=== PATIENT | female | born 1970 | race Hispanic/Latino ===

== ENCOUNTER 2017-06-27 13:37 | Outpatient (CLI) | payer OTHER ==
--- NOTE | 2017-06-27 15:04 | MMO ---
BILATERAL SCREENING MAMMOGRAM: Date: 06/27/17 COMPARISON: 09/18/14. HISTORY: Screening mammography. FINDINGS: This patient's mammogram was interpreted with the assistance of computer-aided detection. Scattered fibroglandular densities are present bilaterally with no dominant mass, architectural disto rtion, or concerning microcalcification. IMPRESSION: BIRADS 1: Negative Annual screening mammography recommended. POS: [facility]
== END 2017-06-27 13:38 | disposition home or self-care (01) ==
LOC: SCSMAMMO 13:37
PROVIDERS: ATTEND Family Medicine
DX: Z12.31 Encounter for screening mammogram for malignant neoplasm of breast (principal)
CPT/HCPCS: 77067

== ENCOUNTER 2017-11-16 09:04 | Outpatient (CLI) | payer OTHER ==
--- NOTE | 2017-11-16 10:30 | RAD ---
PA AND LATERAL CHEST: Indication: Left sternal chest pain for three weeks. IMPRESSION: No acute cardiopulmonary abnormality. The examination is not appreciably change from a comparison rai ed 09-08-06. POS: [facility]
== END 2017-11-16 09:05 | disposition home or self-care (01) ==
LOC: SCSRAD 09:04
PROVIDERS: ATTEND Family Medicine
DX: R07.89 Other chest pain (principal)
CPT/HCPCS: 71046

== ENCOUNTER 2018-07-17 11:04 | Outpatient (CLI) | payer OTHER ==
--- NOTE | 2018-07-18 08:24 | MMO ---
Bilateral MAMMO Bilat Screen [facility]. CLINICAL HISTORY: Patient is 48 years old and is seen for screening. The patient has no family history of breast cancer. The patient has no personal history of cancer. VIEWS: The views performed were: bilateral craniocaudal and bilateral mediolateral oblique. FILMS COMPARED: The present examination has been compared to prior imaging studies performed at [facility] on 11/22/2011, 09/18/2014 and 06/27/2017. This study has been interpreted with the assistance of computer-aided detection. MAMMOGRAM FINDINGS: There are scattered fibroglandular densities. There are no suspicious masses, suspicious calcifications, or new areas of architectural distortion. IMPRESSION: THERE IS NO MAMMOGRAPHIC EVIDENCE OF MALIGNANCY. A ROUTINE FOLLOW-UP MAMMOGRAM IN 1 YEAR IS RECOMMENDED. ACR BI-RADS Category 1 - Negative MAMMOGRAPHY NOTE: 1. A negative mammogram report should not delay a biopsy if a dominant of clinically suspicious mass is present. 2. Approximately 10% to 15% of breast cancers are not detected by mammography. 3. Adenosis and dense breasts may obscure an underlying neoplasm.
== END 2018-07-17 11:05 | disposition home or self-care (01) ==
LOC: SCSMAMMO 11:04
PROVIDERS: ATTEND Family Medicine
DX: Z12.31 Encounter for screening mammogram for malignant neoplasm of breast (principal)
CPT/HCPCS: 77067

== ENCOUNTER 2019-05-10 18:27 | Emergency (ER) | payer OTHER, SELFPAY ==
[2019-05-10] MEDS ORDERED: Bupivacaine 0.25% 10 ML VIAL ONE (19:06)
--- NOTE | 2019-05-10 19:33 | RAD ---
EXAM: RIGHT FINGERS THREE VIEWS: 05/10/19 HISTORY: Injury to right fourth finger, smashed finger with door. Deformity. Minimally comminuted oblique displaced fracture involving the middle phalanx of the fourth finger wit h some associated malrotation, abnormal displacement and resultant deformity. The fracture probably i nvolves the proximal interphalangeal joint. IMPRESSION: Comminuted displaced malrotated, malpositioned fracture of the middle phalanx of the fourth finger. POS: [facility]
== END 2019-05-10 19:37 | disposition home or self-care (01) ==
LOC: ERS 18:27
DX: S62.624A Displaced fracture of middle phalanx of right ring finger, initial encounter for closed fracture (principal); F32.9 Major depressive disorder, single episode, unspecified; E78.00 Pure hypercholesterolemia, unspecified; R73.03 Prediabetes; K21.9 Gastro-esophageal reflux disease without esophagitis; W23.1XXA Caught, crushed, jammed, or pinched between stationary objects, initial encounter
CPT/HCPCS: 26770; S0020

== ENCOUNTER 2019-05-12 11:03 | Outpatient (CLI) | payer SELFPAY ==
[2019-05-12 16:23] LABS: #Basophils 0.1 thou/uL (0.0-0.2); #Eosinphils 0.2 thou/uL (0.0-0.7); #Lymphocytes 2.8 thou/uL (1.20-3.40); #Monocytes 1.4 thou/uL (0.11-0.59); #Neutrophils 7.6 thou/uL (1.40-6.50); %Basophils 0.8 % (0.0-1.0); %Eosinophils 1.4 % (0.0-10.0); %Lymphocytes 23.2 % (21.0-51.0); %Monocytes 11.5 % (0.0-10.0); %Neutrophils 63.2 % (42.0-75.0); Hemoglobin 15.1 g/dL (12.0-16.0); Mean Corpuscular HGB CONC 33.4 g/dL (32.0-36.0); Mean Corpuscular Hemoglobin 28.6 pg (27.0-31.0); Mean Corpuscular Volume 85.5 fL (78.0-98.0); Mean Platelet Volume 8.1 fL (7.4-10.4); Platelet Count 211 thou/uL (130-400); RBC Distribution Width 12.4 % (11.5-14.5)
== END 2019-05-12 11:04 | disposition home or self-care (01) ==
LOC: LABBT 11:03
PROVIDERS: ATTEND Orthopaedic Surgery Hand Surgery
DX: Z01.812 Encounter for preprocedural laboratory examination (principal); S62.604A Fracture of unspecified phalanx of right ring finger, initial encounter for closed fracture
CPT/HCPCS: 85025

== ENCOUNTER 2019-05-13 08:05 | Day surgery (SDC) | payer OTHER, SELFPAY ==
[2019-05-12 16:16] VITALS: BMI 27.4
[2019-05-13] MEDS ORDERED: Fentanyl 100 MCG/2 ML VIAL ONE ×2 (10:35→12:52)
[2019-05-13] MEDS ORDERED: Lidocaine 1% PF 5 ML VIAL ONE (12:50)
[2019-05-13] MEDS ORDERED: Dexamethasone 20 MG/5 ML VIAL ONE (12:50)
[2019-05-13] MEDS ORDERED: PROPOFOL 200 MG/20 ML VIAL ONE (12:50)
[2019-05-13] MEDS ORDERED: Metoclopramide HCl 10 MG/2 ML VIAL ONE (12:50)
[2019-05-13] MEDS ORDERED: Ketorolac Tromethamine 30 MG/ML VIAL ONE ×2 (12:50→16:27)
[2019-05-13] MEDS ORDERED: Ondansetron PF 4 MG/2 ML Vial ONE (12:50)
[2019-05-13] MEDS ORDERED: Bupivacaine PF 0.5% 30 ML VIAL ONE (12:51)
[2019-05-13] MEDS ORDERED: Sodium Chloride 0.9% 10 ML ONE (12:51)
[2019-05-13] MEDS ORDERED: Bacitracin Zinc Ointment 30 gm TUBE ONE (12:51)
[2019-05-13] MEDS ORDERED: Meperidine HCl/PF 25 MG/ML VIAL ONE (12:52)
[2019-05-13] MEDS ORDERED: Famotidine/PF 20 mg/2ml Vial ONE (12:53)
--- NOTE | 2019-05-13 16:36 | RAD ---
EXAM: INTRAOPERATIVE FLUOROSCOPY 05/13/19 HISTORY: ORIF right hand fourth digit. EXPOSURE: 0.09 mGy. 25 seconds. FINDINGS: Three intraoperative fluoroscopic views demonstrate placement of an internal fixation plate traversin g the middle phalanx of the fourth digit. IMPRESSION: Intraoperative fluoroscopy as above. POS: [facility]
--- NOTE | 2019-05-14 10:51 | OP ---
DATE OF PROCEDURE: 05/13/2019 PREOPERATIVE DIAGNOSIS: Displaced in 2 plane (frontal plane apex ulnar displacement with angulation and direction and two sagittal plane approximately 5-6 mm proximally displaced with marked comminution and intra-articular split seen with C-arm). PROCEDURE PERFORMED: 1. Open reduction internal fixation of middle phalanx fracture, right ring finger. 2. C-arm supervision. 3. Open reduction and internal fixation of right ring finger proximal phalanx fracture without displacement. INDICATIONS: Two-plane displacement to include marked comminution 100%. SPECIMENS: None. TOURNIQUET TIME: 62 minutes. ESTIMATED BLOOD LOSS: Less than 15 mL of blood loss. FINDINGS: Comminuted PIPJ intra-articular split fracture of proximal phalanx. HISTORY: The patient is a 48-year-old female, who reports she had accident to her small finger catching a ball, continued with very marked pain first 48 hours and then 3 days later failed to return at the adequate time. Because of concerns, the patient was brought and found to have diffuse type injury. Then, she was found to have cast from previous fractured metacarpals. It was still in full malrotation and she left without getting treated. Thus, the patient is now at the time of this dictation and the procedure, refusing all prescribed or directed help. Job ID: [id number]
== END 2019-05-13 17:49 | disposition home or self-care (01) ==
LOC: SDC 08:05
PROVIDERS: ATTEND Orthopaedic Surgery Hand Surgery
PROC: 0PST04Z Reposition Right Finger Phalanx with Internal Fixation Device, Open Approach (ICD-10-PCS; principal; 2019-05-13)
DX: S62.624A Displaced fracture of middle phalanx of right ring finger, initial encounter for closed fracture (principal); F41.9 Anxiety disorder, unspecified; E78.5 Hyperlipidemia, unspecified; E11.9 Type 2 diabetes mellitus without complications; E78.00 Pure hypercholesterolemia, unspecified; Z79.899 Other long term (current) drug therapy; Z88.1 Allergy status to other antibiotic agents; Z88.2 Allergy status to sulfonamides; Z88.8 Allergy status to other drugs, medicaments and biological substances; X58.XXXA Exposure to other specified factors, initial encounter
CPT/HCPCS: 76000; C1713; J0690; J1100; J1885; J2001; J2175; J2405; J2704; J2765; J3010; J3490; S0020; S0028

== ENCOUNTER 2022-04-26 08:12 | Emergency (ER) | payer SELFPAY ==
[2022-04-26 09:58] LABS: Bacteria/HPF None Seen HPF (None Seen); Bilirubin Negative (Negative); Blood, Urine 3+ (Negative); Clarity Turbid (Clear); Glucose, Urine (Dipstick) Normal (Negative); Ketone, Urine Negative (Negative); Leukocyte 500 Leu/uL (Negative); Nitrite Negative (Negative); Protein, Urine (Dipstick) 100 mg/dL (Neg-Trace); RBC/HPF Greater than 50 HPF (0-3); Specific Gravity, Urine 1.005 (1.002-1.036); Squamous Epithelial 0-3 HPF (0-3); Urobilinogen Normal mg/dL (Less than 2); WBC/HPF Greater than 50 HPF (0-3)
[2022-04-26 10:04] LABS: #Eosinphils 0.1 thou/uL (0.0-0.7); %Basophils 0.1 % (0.0-1.0); %Eosinophils 0.8 % (0.0-10.0); %Lymphocytes 15.4 % (21.0-51.0); %Monocytes 7.8 % (0.0-10.0); %Neutrophils 75.9 % (42.0-75.0); Hemoglobin 15.4 g/dL (12.0-16.0); Mean Corpuscular HGB CONC 33.4 g/dL (32.0-36.0); Mean Corpuscular Hemoglobin 28.8 pg (27.0-31.0); Mean Corpuscular Volume 86.2 fl (78.0-98.0); Mean Platelet Volume 7.7 fL (7.4-10.4); Platelet Count 223 10x3/uL (130-400); RBC Distribution Width 12.5 % (11.5-14.5); Red Blood Cell (RBC) Count 5.35 mill/uL (4.20-5.40); White Blood Cell (WBC) Count 13.2 10x3/uL (4.8-10.8)
[2022-04-26 10:34] LABS: Anion Gap 13 mmol/L (10-20); BUN (Urea Nitrogen) 11 mg/dL (7.0-18.7); Calc. Creatinine Clearance 0 mL/min (70-130); Carbon Dioxide 29 mmol/L (22-29); Chloride 101 mmol/L (98-107); Potassium 3.9 mmol/L (3.5-5.1); Sodium 139 mmol/L (136-145)
[2022-04-26 10:35] LABS: ALT (SGPT) 20 U/L (8-55); AST (SGOT) 18 U/L (5-34); Albumin 4.7 g/dL (3.5-5.0); Alkaline Phosphatase 58 U/L (40-110); Bilirubin, Total 0.6 mg/dL (0.2-1.2); Calcium 9.7 mg/dL (7.8-10.44); Estimated GFR 95; Globulin 2.7 g/dL (2.4-3.5); Glucose 130 mg/dL (70-105); Protein, Total 7.4 g/dL (6.0-8.3)
[2022-04-26] MEDS ORDERED: Phenazopyridine HCl 100 MG TAB PO SCH (11:15)
== END 2022-04-26 12:50 | disposition home or self-care (01) ==
LOC: ERS 08:12
DX: N11.1 Chronic obstructive pyelonephritis (principal); N30.80 Other cystitis without hematuria; D72.829 Elevated white blood cell count, unspecified; I10 Essential (primary) hypertension; Z79.84 Long term (current) use of oral hypoglycemic drugs; Z79.899 Other long term (current) drug therapy
CPT/HCPCS: 36415; 74176; 80053; 81003; 81015; 85025; 87086

== ENCOUNTER 2025-01-05 22:12 | Emergency (ER) | payer OTHER | END 2025-01-06 00:37 | disposition home or self-care (01) | LOC: ERS 22:12 | DX: H10.9 Unspecified conjunctivitis (principal); J01.10 Acute frontal sinusitis, unspecified; J01.00 Acute maxillary sinusitis, unspecified; I10 Essential (primary) hypertension; E78.5 Hyperlipidemia, unspecified; Z79.899 Other long term (current) drug therapy | CPT/HCPCS: 99283 ==

== ENCOUNTER 2025-04-01 20:04 | Emergency (ER) | payer OTHER | END 2025-04-01 21:05 | disposition home or self-care (01) | LOC: ERS 20:04 | DX: S51.811A Laceration without foreign body of right forearm, initial encounter (principal); I10 Essential (primary) hypertension; Z23 Encounter for immunization; W26.8XXA Contact with other sharp object(s), not elsewhere classified, initial encounter | CPT/HCPCS: 12001; 90471; 90715 ==